=== PATIENT | female | born 1935 | race Caucasian/White ===

== ENCOUNTER → 2018-03-05 | Outpatient (CLI) | payer OTHER ==
[~2018-03-05] MED LIST: ADULT LOW DOSE81 MG PO; ALLOPURINOL 10100 M2 PO; AMITRIPTYLINE H10 M1 PO; AUGMENTIN 875875 MG PO; FLEXERIL PO; FUROSEMIDE 20 M20 M1 PO; GABAPENTIN100 MG PO; LISINOPRIL20 MG PO; LORTAB 5 MG/5001 TA1 PO; OMEPRAZOLE20 MG PO; SYNTHROID
== END ==
LOC: M.MRI 15:44
DX: M47.816 Spondylosis without myelopathy or radiculopathy, lumbar region (principal); G89.29 Other chronic pain; M51.34 Other intervertebral disc degeneration, thoracic region; M48.062 Spinal stenosis, lumbar region with neurogenic claudication; M54.16 Radiculopathy, lumbar region

== ENCOUNTER → 2018-07-02 | Outpatient (CLI) | payer OTHER | LOC: M.RAD 13:50 | DX: J98.11 Atelectasis (principal); R06.02 Shortness of breath ==

== ENCOUNTER → 2018-07-17 | Outpatient (CLI) | payer OTHER | LOC: M.RAD 11:02 | DX: J84.10 Pulmonary fibrosis, unspecified (principal); I34.8 Other nonrheumatic mitral valve disorders; J15.8 Pneumonia due to other specified bacteria; R59.0 Localized enlarged lymph nodes ==

== ENCOUNTER → 2018-09-03 | Outpatient (CLI) | payer OTHER | LOC: M.RAD 13:27 | DX: Z12.31 Encounter for screening mammogram for malignant neoplasm of breast (principal) ==

== ENCOUNTER 2020-03-05 19:29 | Emergency (ER) | payer OTHER ==
[~2020-03-05] VITALS: Ht 154.9 cm; Wt 90.3 kg
[2020-03-05] MEDS ORDERED: CRANBERRY400 MG PO (20:14)
[2020-03-05 21:00] LABS: ABSOLUTE BASOPHILS 0.1 thou/uL (0.0-0.2); ABSOLUTE EOSINOPHILS 0.1 thou/uL (0.0-0.7); ABSOLUTE LYMPHOCYTES 1.2 thou/uL (0.8-5.3); ABSOLUTE MONOCYTES 1.1 thou/uL (0.0-1.2); ABSOLUTE NEUTROPHILS 12.9 thou/uL (1.6-8.1); BASOPHILS 0.4 %; EOSINOPHILS 0.4 %; HEMATOCRIT 47.5 % (37.0-47.0); HEMOGLOBIN 16.1 gm/dL (12.0-15.0); LYMPHOCYTES 7.9 %; MCH 31.6 pg (26.0-34.0); MCHC 33.9 g/dL (28.0-37.0); MCV 93.3 fL (80.0-100.0); MONOCYTES 7.1 %; MPV 8.7 fl. (7.2-11.1); NUCLEATED RBCS 0 /100WBC; PLATELET COUNT* 315 thou/uL (150-400); POLYS 84.2 %; RBC 5.09 mil/uL (4.20-5.00); RDW-CV 13.6 % (10.5-14.5); WBC 15.4 thou/uL (4.0-11.0)
[2020-03-05 21:04] LABS: CALCIUM 9.1 mg/dL (8.5-10.1); CREATININE 1.6 mg/dL (0.6-1.3); POTASSIUM 4.3 mmol/L (3.5-5.1)
[2020-03-05 21:09] LABS: ALBUMIN 3.3 g/dL (3.4-5.0); TOTAL BILIRUBIN 0.3 mg/dL (<0.1-1.0); TOTAL PROTEIN 6.4 g/dL (6.4-8.2)
[2020-03-05] MEDS ORDERED: LORCET 5-325 M1 EACH PO (22:08)
[2020-03-05] MEDS ORDERED: KEFLEX500 M2 PO (22:08)
[2020-03-05 22:27] VITALS: BP 147/78
== END 2020-03-05 22:29 | disposition home or self-care (01) ==
LOC: M.ERS 19:29
PROVIDERS: Emergency Medicine
DX: L03.115 Cellulitis of right lower limb (principal); I10 Essential (primary) hypertension; E03.9 Hypothyroidism, unspecified; Z90.49 Acquired absence of other specified parts of digestive tract; Z96.652 Presence of left artificial knee joint; Z96.641 Presence of right artificial hip joint; Z91.013 Allergy to seafood; Z88.8 Allergy status to other drugs, medicaments and biological substances

== ENCOUNTER 2020-10-09 17:28 | Inpatient (IN) | payer OTHER ==
[~2020-10-09] VITALS: Ht 154.9 cm; Wt 96.1 kg
[~2020-10-09 17:28] MED LIST changes: +CRANBERRY400 MG PO; +KEFLEX500 M2 PO; +LORCET 5-325 M1 EACH PO
[2020-10-09 18:00] VITALS: BP 145/103
[2020-10-09] MEDS ORDERED: LEVO-T25 MCG (18:11)
[2020-10-09] MEDS ORDERED: LISINOPRIL10 MG PO (18:11)
[2020-10-09] MEDS ORDERED: FLEXERIL PO (18:12)
[2020-10-09] MEDS ORDERED: AMITRIPTYLINE H10 M1 PO (18:12)
[2020-10-09 18:23] LABS: HEMATOCRIT 52.1 % (37.0-47.0); HEMOGLOBIN 17.4 gm/dL (12.0-15.0); MCH 31.3 pg (26.0-34.0); MCHC 33.4 g/dL (28.0-37.0); MCV 93.8 fL (80.0-100.0); MPV 10.4 fl. (7.2-11.1); NUCLEATED RBCS 0 /100WBC; PLATELET COUNT* 240 thou/uL (150-400); RBC 5.55 mil/uL (4.20-5.00); RDW-CV 15.3 % (10.5-14.5); WBC 10.5 thou/uL (4.0-11.0)
[2020-10-09 18:36] LABS: APTT 24.6 Seconds (25.0-31.3); PROTIME 10.7 Seconds (9.20-11.50)
[2020-10-09 18:45] LABS: ALBUMIN 4.2 g/dL (3.4-5.0); CALCIUM 10.2 mg/dL (8.5-10.1); CREATININE 1.7 mg/dL (0.6-1.3); POTASSIUM 4.2 mmol/L (3.5-5.1); TOTAL BILIRUBIN 0.9 mg/dL (<0.1-1.0); TOTAL PROTEIN 7.8 g/dL (6.4-8.2)
[2020-10-09 18:58] LABS: ABSOLUTE LYMPHOCYTES 0.8 thou/uL (0.8-5.3); ABSOLUTE MONOCYTES 0.3 thou/uL (0.0-1.2); ABSOLUTE NEUTROPHILS 9.3 thou/uL (1.6-8.1)
[2020-10-09 18:59] LABS: PLATELET ESTIMATE ADEQUATE
[2020-10-09 21:13] VITALS: BP 131/64
[2020-10-09 22:00] VITALS: BP 132/69
--- NOTE | 2020-10-09 22:33 | NUR ---
PT ADMITTTED TO ROOM 202 AT 2130. PT ON CARDIZEM DRIP FOR TREATMENT OF AFIB / RVR. PT ORIENTED TO CALL LIGHT, ROOM AND BED CONTROLS. PT INSTRUCTED TO CALL FOR ASSISTANCE BEFORE GETTING UP. CALL LIGHT IN REACH, PT DEMONSTRATES PROPER USE.
[2020-10-10] VITALS (7 sets, daily range): BP systolic 99–150; BP diastolic 53–75
--- NOTE | 2020-10-10 17:06 | NUR ---
RECEIVED REPORT AROUND 0715. ASSUMED CARE. VS AND ASSESSMENT CHARTED. IV INTACT RIGHT AC. NEW IV INSERTED RIGHT HAND FOR ABX. HEART MONITOR ATTACHED AT AFIB. AMIO DRIP RUNNING. PT HAD EPISODE OF SHORTNESS OF BREATH WHEN GETTING UP TO USE BATHROOM. DR HOWARD ORDERED TO USE PURWICK. PT UP IN CHAIR NOW. HAS HAD PAIN THROUGHOUT SHIFT. PT STARTED ON BREATHING TREATMENTS THIS SHIFT. MORPHINE ORDERED PER DR HOWARD. MEDS GIVEN PER AUG. HOURLY ROUNDING PERFORMED. FAMILY VISTED THIS SHIFT. UPDATED ON PT. CALL LIGHT WITH IN REACH. WILL CONTINUE TO MONITOR.
[2020-10-11 03:39] VITALS: BP 106/63
[2020-10-11 04:18] LABS: CALCIUM 8.5 mg/dL (8.5-10.1); CREATININE 1.8 mg/dL (0.6-1.3); POTASSIUM 3.9 mmol/L (3.5-5.1)
--- NOTE | 2020-10-11 04:21 | NUR ---
ASSUMED CARE OF PT AFTER REPORT AT 1930. PT A&OX4. VSS. PHYSICAL ASSESSMENT COMPLETED AND CHARTED. PT ON O2 AT 6L NC. SOB WITH ACTIVITY NOTED. PT TRACING AFIB ON TELE. PT UPSTANDBY FROM RECLINER TO BED. PT COMPLAINED OF RIGHT SHOULDER PAIN & ANXIOUS-MED GIVEN PER AUG. MAINTAINED ON AMIODARONE DRIP. PT INSTRUCTED ON NPO POST MIDNIGHT FOR STRESS TEST TODAY. COMMUNICATES UNDERSTANDING. PT ABLE TO SLEEP WELL ON BED. FALL PRECAUTIONS IN PLACE. CALL LIGHT WITHIN REACH.
[2020-10-11 08:08] VITALS: BP 128/77
[2020-10-11 11:39] VITALS: BP 101/51
--- NOTE | 2020-10-11 12:25 | 2DMMODE ---
[place] [address] 2 D/M-MODE ECHOCARDIOGRAM Name: BANUELOSRASHI Room: [address] IN .R.#: [id number] Admission: 10/09/20 Attend Phys: Minal Isaac, Discharge: 10/16/20 Date of : 37 Date of Service: 10/11/20 1225 Report #: [id number] THIS REPORT FOR: cc: Jerry Pop MD, Dean L. MD Holkins, John M. MD [facility] ~ APPROVED REPORT Study performed: 10/11/2020 09:47:30 EXAM: Comprehensive 2D, Doppler, and color-flow Echocardiogram BSA: 1.85 HR: 95 bpm BP: 128/77 mmHg Other Information Study Quality: Technically Limited Technically limited study due to inability to position patient and coughing. Indications Atrial Fibrillation Dyspnea 2D Dimensions IVSd: 13.58 (7-11mm) LVOT Diam: 18.40 (18-24mm) LVDd: 46.04 mm PWd: 11.89 (7-11mm) Ascending Ao: 26.30 (22-36mm) LVDs: 32.89 (25-40mm) Aortic Root: 27.64 mm Volumes Left Atrial Volume (Systole) LA ESV Index: 29.80 mL/m2 Aortic Valve AoV Peak Eh.: 1.08 m/s AO Peak Gr.: 4.63 mmHg LVOT Max P.67 mmHg AO Mean Gr.: 2.78 mmHg LVOT Mean P.34 mmHg LVOT Max V: 0.82 m/s AO V2 VTI: 17.23 cm LVOT Mean V: 0.54 m/s ESTELLA (VTI): 2.07 cm2 LVOT V1 VTI: 13.39 [place] [address] 2 D/M-MODE ECHOCARDIOGRAM Name: RASHI BANUELOS Room: [address] IN [facility]#: [id number] Admission: 10/09/20 Attend Phys: Minal Isaac, Discharge: Date of : 37 Date of Service: 10/11/20 1225 Report #: [id number] Mitral Valve MV Mean Gr.: 3.72 mmHg MV Decel. Time: 191.94 ms MV PHT: 55.66 ms MVA (PHT): 3.95 cm2 TDI Medial E' Eh.: 0.04 m/s Lateral E' Eh.: 0.04 m/s Pulmonary Valve PV Peak Eh.: 0.59 m/s PV Peak Gr.: 1.39 mmHg Tricuspid Valve RAP Estimate: 20.00 mmHg TR Peak Gr.: 17.07 mmHg RVSP: 37.07 mmHg PA Pressure: 37.07 mmHg Left Ventricle The left ventricle is normal size. There is normal LV segmental wall motion. There is normal left ventricular wall thickness. Left ventricular systolic function is normal. LVEF is 55%. This study is not technically sufficient to allow evaluation of the LV diastolic function due to atrial fibrillation. Right Ventricle The right ventricle is normal size. The right ventricular systolic function is normal. Atria The left atrium size is normal. The right atrium size is normal. Aortic Valve The aortic valve is normal in structure. No aortic regurgitation is present. There is no aortic valvular stenosis. Mitral Valve There is mitral annular calcification. Trace mitral regurgitation. No significant mitral valve stenosis. Tricuspid Valve The tricuspid valve is normal in structure. Trace tricuspid regurgitation[place] [address] 2 D/M-MODE ECHOCARDIOGRAM Name: RASHI BANUELOS Room: [address]#: [id number] Admission: 10/09/20 Attend Phys: Minal Isaac, Discharge: Date of : 37 Date of Service: 10/11/20 1225 Report #: [id number] The pulmonary valve is normal in structure. There is no pulmonic valvular regurgitation. Great Vessels The aortic root is normal in size. IVC is dilated. Pericardium There is no pericardial effusion. <Conclusion> The left ventricle is normal size. There is normal left ventricular wall thickness. Left ventricular systolic function is normal. LVEF is 55%. This study is not technically sufficient to allow evaluation of the LV diastolic function due to atrial fibrillation. The right ventricle is normal size. The left atrium size is normal. The aortic valve is normal in structure. There is mitral annular calcification. No significant mitral valve stenosis. The tricuspid valve is normal in structure. IVC is dilated. There is no pericardial effusion. There is normal LV segmental wall motion. <ELECTRONICALLY SIGNED> By: Angel Serrato MD, FACC 10/11/20 1225 1225 1225 Angel Serrato MD, FACC /INF
--- NOTE | 2020-10-11 12:54 | NUR ---
Pt is A&O. Resides at home, has someone living in the apartment in her home. Independent. Pt has a rollator, cane and wc at home, primarily uses the RW. No home o2. No hx of HH or SNF. Goal is home at dc, no needs anticipated. Cardiology following, on amio gtt. Currently on 4L of o2, will need an ex ox at dc, if Pt continues to require o2. Following.
--- NOTE | 2020-10-11 15:19 | EKG ---
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 : 1935 Requested By: Aga Garcia Order Number: [id number] MD: Angel Serrato Measurements Intervals [place] Rate: 159 P: NE: QRS: 24 QRSD: 82 T: 203 QT: 253 QTc: 412 Interpretive Statements Atrial fibrillation with rapid V-rate Repolarization abnormality, prob rate related Baseline wander in lead(s) V1 No previous ECG available for comparison Electronically Signed On 10-11-2020 15:19:24 CDT by Angel Serrato [email or web address] <ELECTRONICALLY SIGNED> By: Angel Serrato MD, [facility] 10/11/20 1519 1759 1759 Angel Serrato MD, [facility] /EPI
--- NOTE | 2020-10-11 15:25 | NUR ---
ORDERS RECEIVED AND CHART REVIEWED. PATIENT BECAME NAUSEOUS UPON INITIATION OF THERAPY. UNABLE TO ASSESS FUNCTION AT THIS TIME. PATIENT DESIRES TO HOLD OFF WITH P.T. AT THIS TIME. WILL CONTINUE P.T. ASSESSMENT 10/12/20. CARY CABRERA, MPT
--- NOTE | 2020-10-11 15:29 | EKG ---
[place] [address] ELECTROCARDIOGRAM REPORT Name: RASHI BANUELOS Room: [address] IN M.R.#: [id number] Admission: 10/09/20 Attend Phys: Minal Isaac, Discharge: 10/16/20 Date of : 37 Date of Service: 10/11/20 0841 Report #: [id number] THIS REPORT FOR: //name// [facility] Test Date: 2020-10-11 Test Time: 08:41:11 Pat Name: RASHI BANUELOS Department: Room: [address] Gender: F [place] Attorney: RIKA : 1935 Requested By: Jill Lundberg Order Number: [id number] Pedro MD: Angel Serrato Measurements Intervals [place] Rate: 119 P: CT: QRS: 26 QRSD: 83 T: 205 QT: 307 QTc: 432 Interpretive Statements Atrial fibrillation with a tachycardic ventricular response Nonspecific T abnormalities, lateral leads Compared to ECG 10/09/2020 17:59:30 T-wave abnormality now present Early repolarization no longer present Electronically Signed On 10-11-2020 15:29:44 CDT by Angel Serrato [email or web address] <ELECTRONICALLY SIGNED> By: Angel Serrato MD, [facility] 10/11/20 1529 0 0841 Angel Serrato MD, [facility] /EPI
[2020-10-11 16:09] VITALS: BP 122/77
--- NOTE | 2020-10-11 18:35 | NUR ---
PT IS ALERT AND ORIENTED BUT VERY ANXIOUS WAS ON 6L NC TO 4L NC STILL AFIB ON THE MONITOR TACHY AMIO GTT ASSIST X1 WITH A WALKER C/O PAIN TO RIGHT SHOULDER MORPHINE AND NORCO GIVEN NAUSEATED SO GIVEN ZOFRAN PT EMESIS CLEAR LIQUID WATER IT LOOKS LIKE X3 TODAY SOA NOTED T/O DAY SOME IRRITATION NOTED FAMILY AT BEDSIDE WITH EXTRA NEEDS CALL LIGHT IN REACH
[2020-10-11 20:49] VITALS: BP 108/71
[2020-10-11 23:52] VITALS: BP 114/64
[2020-10-12 04:26] VITALS: BP 96/60
[2020-10-12 05:12] LABS: HEMATOCRIT 46.6 % (37.0-47.0); MCV 96.9 fL (80.0-100.0); MPV 10.7 fl. (7.2-11.1); RBC 4.81 mil/uL (4.20-5.00); RDW-CV 15.6 % (10.5-14.5); WBC 10.9 thou/uL (4.0-11.0)
[2020-10-12 05:19] LABS: CALCIUM 9.4 mg/dL (8.5-10.1); CREATININE 2.6 mg/dL (0.6-1.3); POTASSIUM 4.8 mmol/L (3.5-5.1)
[2020-10-12 06:09] LABS: HEMOGLOBIN 14.9 gm/dL (12.0-15.0)
--- NOTE | 2020-10-12 06:27 | NUR ---
PT IS ABLE TO COMMUNICATE HER NEEDS TO STAFF WITH MINOR DIFFICULTY; SHE CAN HAVE GARBLED SPEECH AT TIMES AND IS FORGETFUL AT TIMES WELL. SHE HAS DENIED THE NEED FOR PAIN MEDICATION UP TO THIS TIME. PT VOMITING FREQUENTLY AT START OF SHIFT; MD PUGHD, ORDERS RECIEVED, IMPLEMENTED, AND TOLERATED WELL BY PT. PT DID NOT HAVE MEASURABLE OUTPUT OVERNIGHT; PAGED, ORDERS RECEIVED AND IN THE PROCESS OF BEING IMPLEMENTED AT THIS TIME.
[2020-10-12 08:30] VITALS: BP 139/85
[2020-10-12 12:01] VITALS: BP 143/106
--- NOTE | 2020-10-12 12:57 | EKG ---
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: : 1935 Requested By: Jill Lundberg Order Number: [id number] Pedro MD: Angel Serrato Measurements Intervals [place] Rate: 96 P: [place]: QRS: 23 QRSD: 88 T: 228 QT: 478 QTc: 605 Interpretive Statements Atrial fibrillation Borderline T abnormalities, diffuse leads Prolonged QT interval Compared to ECG 10/11/2020 08:41:11 Prolonged QT interval now present T-wave abnormality still present Electronically Signed On 10-12-2020 12:57:10 CDT by Angel Serrato [email or web address] <ELECTRONICALLY SIGNED> By: Angel Serrato MD, FACC 10/12/20 1257 1002 1002 Angel Serrato MD, FACC /EPI
--- NOTE | 2020-10-12 13:21 | NUR ---
Pt weak today, therapies to see. Afib, cardiology following. Remains on 4L o2, will need ex ox at dc if continues to require. Anticipate dc in a few days.
[2020-10-12 16:00] VITALS: BP 85/57
[2020-10-12 16:09] LABS: BE -10.5 mmol/L (-2 to +3); PCO2 40.8 mmHg (35.0-45.0); PO2 79.8 mmHg (75.0-100.0)
[2020-10-12 16:14] LABS: pH 7.226 (7.340-7.450)
[2020-10-12 16:41] LABS: CALCIUM 9.3 mg/dL (8.5-10.1); POTASSIUM 4.7 mmol/L (3.5-5.1)
--- NOTE | 2020-10-12 17:31 | NUR ---
PT WITH WORSENING SYMPTOMS T/O DAY PT WAS VERY WEAK AND LETHARGIC THIS AM ON 4L NC LS WITH CONGESTION AT TIMES AND HAS TO COUGH TO MOVE AROUND YESTERDAY NOTICED AUDBILE WHEEZING IN THE EVENING EDEMA CONTINUES TO BLE 2+ VERY COLD TO THE TOUCH ALL OVER BP WAS HIGH THIS AM BUT IS NOW 88/54 SOME CONFUSION AND SLURRED SPEECH AT TIMES MAYBE 25ML OF OUTPUT EVEN WITH IV ABT AND SOME FLUIDS CREAT IS 3.0 NOW DISCUSSED THIS AM THE PATIENT WORSE THAN YESTERDAY WITH PHYSICIAN THEN AGAIN LATER ABOUT PT COLD TO TOUCH AND VERY WEAK PROBABLY NOT ABLE TO GET UP MOVING AROUND LIKE WE WOULD LIKE PT DID SIT IN CHAIR FOR ABOUT AN HOUR OR SO THIS AFTERNOON DENIES PAIN DISCUSSED WITH PHYSICIAN AGAIN
[2020-10-12 19:32] LABS: PHOSPHORUS* 6.3 mg/dL (2.5-4.9)
[2020-10-12 19:38] LABS: MAGNESIUM < 0.1 mg/dL (1.8-2.4)
[2020-10-12 20:09] VITALS: BP 98/56
[2020-10-13] VITALS (8 sets, daily range): BP systolic 84–117; BP diastolic 47–82
--- NOTE | 2020-10-13 05:14 | NUR ---
PT IS ABLE TO COMMUNICATE HER NEEDS TO STAFF WITH MINOR DIFFICULTY; SHE CAN BE FORGETFUL AT TIMES. SHE HAS DENIED THE NEED FOR PAIN MEDICATION UP TO THIS TIME. SERUM MAG CRITICAL LOW EARLY IN SHIFT; PAGED, ORDERS RECEIVED AND CURRENTLY BEING IMPLEMENTED. ENHANCED ISOLATION FOR PENDING COVID-19 TESTING MAINTAINED. SHE HAS BEEN NPO SINCE MIDNIGHT FOR POSSIBLE THORACENTESIS TODAY; ORDERED TO HOLD ALL ANTI-PLT/COAG MEDS THIS MORNING.
[2020-10-13 05:43] LABS: ABSOLUTE EOSINOPHILS 0.1 thou/uL (0.0-0.7); ABSOLUTE LYMPHOCYTES 1.3 thou/uL (0.8-5.3); ABSOLUTE NEUTROPHILS 7.7 thou/uL (1.6-8.1); BASOPHILS 0.3 %; EOSINOPHILS 1.3 %; HEMATOCRIT 44.1 % (37.0-47.0); HEMOGLOBIN 14.5 gm/dL (12.0-15.0); MCH 31.2 pg (26.0-34.0); MCV 94.6 fL (80.0-100.0); MONOCYTES 9.8 %; MPV 10.3 fl. (7.2-11.1); NUCLEATED RBCS 0 /100WBC; PLATELET COUNT* 213 thou/uL (150-400); POLYS 75.6 %; RBC 4.66 mil/uL (4.20-5.00); RDW-CV 14.9 % (10.5-14.5); WBC 10.2 thou/uL (4.0-11.0)
[2020-10-13 05:51] LABS: ALBUMIN 2.9 g/dL (3.4-5.0); APTT 31.4 Seconds (25.0-31.3); CALCIUM 9.1 mg/dL (8.5-10.1); CREATININE 2.7 mg/dL (0.6-1.3); INR 1.2; MAGNESIUM 3.3 mg/dL (1.8-2.4); POTASSIUM 4.7 mmol/L (3.5-5.1); PROTIME 12.3 Seconds (9.20-11.50); TOTAL BILIRUBIN 0.4 mg/dL (<0.1-1.0); TOTAL PROTEIN 6.2 g/dL (6.4-8.2)
--- NOTE | 2020-10-13 12:30 | NUR ---
PUI. Remains on 4L o2. Cards following for afib. Peggy dc for today. PT eval yesterday, recommending outpt therapy. CM following.
--- NOTE | 2020-10-13 19:52 | NUR ---
I ASSUMED CARE OF THE PATIENT AT 0700. SHE IS ALERT AND ORIENTED X4, BUT A LITTLE FORGETFUL. BED IS IN THE LOW LOCKED POSITION AND CALL LIGHT IS IN REACH. HOURLY ROUNDING IS COMPLETED AND PATIENT NEEDS ARE MET. PAIN IS DENIED. THORACENTESIS WILL BE TOMORROW, SO NPO AT MIDNIGHT. SHE FAILED A BEDSIDE SWALLOW TODAY, BUT PASSED THE VIDEO SWALLOW. ISOLATION IS MAINTAINED UNTIL COVID PCR COMES BACK FROM THE LAB. OXYGEN IS TITRATED TO 3 LITERS. DIET IS RESUMED. SHE IS UP WITH ASSIST OF 2, GAIT BELT AND WALKER. WILL CONTINUE TO MONITOR. NO BLOOD THINNERS UTIL AFTER THORACENTESIS.
[2020-10-14 04:00] VITALS: BP 120/63
--- NOTE | 2020-10-14 04:36 | NUR ---
PT SLEPT ON AND OFF THIS SHIFT. ASSESSMENT DOCUMENTED. MEDS GIVEN PER E-AUG. IV PATENT. PT REMOVED IV THIS SHIFT, NEW IV STARTED. PT DOWN TO 2L NC THIS SHIFT. COVID PCR CAME BACK NEGATIVE, NOTIFIED, ORDERS TO D/C ISOLATION. FALL PRECAUTIONS IN PLACE. PT NPO SINCE 0000. WILL CONTINUE WITH PLAN OF CARE.
[2020-10-14 04:56] LABS: ABSOLUTE EOSINOPHILS 0.3 thou/uL (0.0-0.7); ABSOLUTE LYMPHOCYTES 1.2 thou/uL (0.8-5.3); ABSOLUTE MONOCYTES 0.8 thou/uL (0.0-1.2); ABSOLUTE NEUTROPHILS 5.7 thou/uL (1.6-8.1); BASOPHILS 0.2 %; EOSINOPHILS 3.5 %; HEMATOCRIT 39.9 % (37.0-47.0); HEMOGLOBIN 13.2 gm/dL (12.0-15.0); LYMPHOCYTES 15.6 %; MCH 30.9 pg (26.0-34.0); MCHC 32.9 g/dL (28.0-37.0); MCV 93.8 fL (80.0-100.0); MPV 10.6 fl. (7.2-11.1); NUCLEATED RBCS 0 /100WBC; PLATELET COUNT* 207 thou/uL (150-400); POLYS 70.7 %; RBC 4.26 mil/uL (4.20-5.00); RDW-CV 15.1 % (10.5-14.5)
[2020-10-14 05:11] LABS: ALBUMIN 2.8 g/dL (3.4-5.0); CALCIUM 8.8 mg/dL (8.5-10.1); CREATININE 2.7 mg/dL (0.6-1.3); POTASSIUM 4.2 mmol/L (3.5-5.1); TOTAL BILIRUBIN 0.3 mg/dL (<0.1-1.0); TOTAL PROTEIN 6.4 g/dL (6.4-8.2)
[2020-10-14 07:49] LABS: PCO2 42.5 mmHg (35.0-45.0); PO2 82.6 mmHg (75.0-100.0)
[2020-10-14 07:58] LABS: pH 7.262 (7.340-7.450)
[2020-10-14 08:00] VITALS: BP 112/48
--- NOTE | 2020-10-14 12:08 | NUR ---
Covid negative. 2L. Thora today. Cards following.
[2020-10-14 12:36] VITALS: BP 108/68
[2020-10-14 12:44] LABS: BF RBC <1000 /mm3; TOTAL CELL COUNT 483 /mm3
[2020-10-14 12:46] LABS: CLARITY HAZY; TOTAL VOLUME 660 ml
[2020-10-14 12:52] LABS: SOURCE PLEURAL FLUID
[2020-10-14 13:20] LABS: BF LYMPHOCYTES 87 %; BF MONOCYTES 6 %; BF POLYS 7 %; BF TISSUE 53 /100 WBC
[2020-10-14 15:49] VITALS: BP 108/64
[2020-10-14 20:00] VITALS: BP 117/57
--- NOTE | 2020-10-14 22:17 | NUR ---
PT DOWN FOR THORACENTIOSI REMOVED 660 FROM LEFT LUNG. PT TOLERATED PROCEEDURE WELL. PT UP AMBULATING IN ROOM WITH STEADY GAIT USING WALKER AND GAIT BELT. VSS AFEBRILE. PT IS ON ROOM AIR AND SATING IN THE UPPER 98%. WILL CONTINUE TO MONITOR PLAN OF CARE. PT TAKEN DOWN PER WHEEL CHAIR FOR CAT SCAN OF THE CHEST.
[2020-10-15] VITALS: BP 119/68
[2020-10-15 04:00] VITALS: BP 88/50
--- NOTE | 2020-10-15 07:41 | NUR ---
ASSUMED PT CARE AT APPROX 1930. PT IS AWAKE AND ORIENTED X4, FORGETFUL AT TIMES. PT IS NOT IN DISTRESS, NO DESATURATIONS NOTED ON ROOM AIR. PT DENIES PAIN/DISCOMFORT. THORACENETESIS SITE IS DRY. NO ACUTE CHANGES THIS SHIFT. CALL LIGHT WITHIN REACH. HOURLY ROUNDING DONE FOR PT SAFETY. HIGH FALL PRECAUTIONS IN PLACE.
[2020-10-15 08:00] VITALS: BP 128/54
[2020-10-15 12:00] VITALS: BP 138/68
--- NOTE | 2020-10-15 13:04 | NUR ---
Therapies to seeJeremy Woods yesterday. Off o2. Remains on ivabx. Anticipate dc in a few days to home with HH. CM to have [facility] from [facility] to assess Pt for HH.
[2020-10-15 15:08] LABS: BODY FLUID PROTEIN 1.7 g/dL (())
[2020-10-15 16:00] VITALS: BP 118/77
--- NOTE | 2020-10-15 16:49 | EKG ---
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1935 Requested By: Jill Lundberg Order Number: [id number] Reading MD: Angel Serrato Measurements Intervals [place] Rate: 104 P: [place]: QRS: 18 QRSD: 92 T: 49 QT: 367 QTc: 483 Interpretive Statements Atrial fibrillation Borderline repolarization abnormality Compared to ECG 10/12/2020 10:02:17 T-wave abnormality no longer present Prolonged QT interval no longer present Electronically Signed On 10-15-2020 16:49:52 CDT by Angel Serrato [email or web address] <ELECTRONICALLY SIGNED> By: Angel Serrato MD, [facility] 10/15/20 1649 0837 0837 Angel Serrato MD, [facility] /EPI
--- NOTE | 2020-10-15 16:54 | NUR ---
[facility] NTN Bedside Note: Met with patient and son in law was also in the room. Cj does want our HH. Appt set with Dr. Pop for October 20 at 1:30. Told YADIRA Frank and YADIRA Shaw. [facility]
[2020-10-15 19:45] VITALS: BP 128/65
[2020-10-16] VITALS: BP 144/85
--- NOTE | 2020-10-16 03:56 | NUR ---
PT A&O, VSS ON ROOM AIR, IV SALINE LOCKED, PT UP WITH ASSIST TO GUY. AFIB ON TELE MONITOR. NO CO PAIN THIS SHIFT. PT SLEEPING IN CHAIR MAJORITY OF NIGHT. ASSESSMENTS AND HOURLY ROUNDINGS COMPLETE, WILL CONTINUE TO MONITOR.
[2020-10-16 04:00] VITALS: BP 127/69
[2020-10-16 04:29] LABS: ABSOLUTE EOSINOPHILS 0.2 thou/uL (0.0-0.7); ABSOLUTE LYMPHOCYTES 1.3 thou/uL (0.8-5.3); ABSOLUTE MONOCYTES 0.8 thou/uL (0.0-1.2); ABSOLUTE NEUTROPHILS 4.9 thou/uL (1.6-8.1); BASOPHILS 0.5 %; EOSINOPHILS 2.9 %; HEMATOCRIT 43.4 % (37.0-47.0); HEMOGLOBIN 14.4 gm/dL (12.0-15.0); LYMPHOCYTES 18.2 %; MCH 31.1 pg (26.0-34.0); MCHC 33.2 g/dL (28.0-37.0); MCV 93.7 fL (80.0-100.0); MONOCYTES 11.2 %; MPV 9.7 fl. (7.2-11.1); NUCLEATED RBCS 0 /100WBC; PLATELET COUNT* 278 thou/uL (150-400); POLYS 67.2 %; RBC 4.63 mil/uL (4.20-5.00); RDW-CV 14.8 % (10.5-14.5); WBC 7.3 thou/uL (4.0-11.0)
[2020-10-16 04:43] LABS: ALBUMIN 3.1 g/dL (3.4-5.0); CALCIUM 9.5 mg/dL (8.5-10.1); MAGNESIUM 2.6 mg/dL (1.8-2.4); POTASSIUM 4.1 mmol/L (3.5-5.1); TOTAL BILIRUBIN 0.6 mg/dL (<0.1-1.0); TOTAL PROTEIN 6.3 g/dL (6.4-8.2)
[2020-10-16 05:50] LABS: CREATININE 1.7 mg/dL (0.6-1.3)
[2020-10-16 08:10] VITALS: BP 143/86
[2020-10-16 12:00] VITALS: BP 165/83
--- NOTE | 2020-10-16 14:13 | NUR ---
ASSUMED CARE OF PT AT 0730. PT SITTING UP IN THE RECLINER WAITING FOR BREAKFAST. A&0x4, DENIES ANY PAIN OR SHORTNESS OF BREATH AT THIS TIME. 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 RATE IN THE 110'S-120'S AT TIMES. ON RA SAT UPPER 90'S. PT UP WITH 1 ASSIST TO BATHROOM. CARDIOLOGY HERE THIS AFTERNOON AND MEDICATION ADJUSTMENTS MADE. REFER TO EMAR. AM ASSESSMENT CHARTED. MEDICATIONS PER MAR. PT REPOSITIONS SELF WITH REMINDERS. HOURLY ROUNDING OBSERVED. BED IN LOW POSITION. CHAIR ALARM IN PLACE. FALL PRECAUTIONS IN PLACE. CALL LIGHT WITHIN REACH. WILL CONTINUE PLAN OF CARE.
[2020-10-16] MEDS ORDERED: ELIQUIS5 MG PO (15:34)
[2020-10-16] MEDS ORDERED: PACERONE 200 M200 M1 PO (15:35)
[2020-10-16] MEDS ORDERED: METOPROLOL SUCC25 M1 PO (15:36)
[2020-10-16 15:46] VITALS: BP 165/83
--- NOTE | 2020-10-16 16:39 | NUR ---
OK FOR DISCHARGE PER CARDIO, RENAL AND PULM. DISCHARGE ORDERS RECEIVED. DISCHARGE INSTRUCTIONS, CARE NOTES, SCRIPTS AND FOLLOW UP APPTS GIVEN TO PT. PT COMMUNICATES UNDERSTANDING OF DISCHARGE TEACHING. IV AND COST COORDINATOR REMOVED. PT DISCHARGED WITH ALL BELONGINGS AND PAPERWORK VIA WHEELCHAIR WITH NURSING STAFF TO FAMILY OWN PERSONAL VEHICLE.
--- NOTE | 2020-10-18 15:08 | CON ---
[address] [address] CONSULTATION Name: KIKI BANUELOSMARISSA PATEL Room: [address] IN M.R.#: [id number] Admission: 10/09/20 Attend Phys: Minal Isaac MD Discharge: 10/16/20 Date of : 37 Report #: [id number] THIS REPORT FOR: cc: Jerry Pop MD, Dean L. MD Pervez, Adeel MD ~ DOC #: [id number] Domenic Lopez MD DATE OF CONSULTATION: 10/13/2020 Consult has been requested by Dr. Joya. INDICATION FOR CONSULTATION: Pneumonia. HISTORY OF PRESENT ILLNESS: An 85-year-old female with past medical history is as mentioned below. This does not include a history of smoking. The patient likely has previously undiagnosed obstructive sleep apnea. Her body mass index is 40. She does have kidney disease. I do not have her baseline creatinine available. The patient now presented initially to the emergency room on 10/09. Presentation was with shortness of breath. The patient was noted to be in atrial fibrillation on admission. It is not known to me as to whether this atrial fibrillation is new or old. The patient had already been treated with prednisone as well as erythromycin by her primary care physician as an outpatient. The patient was short of breath on admission as above. She also was coughing. There is not much sputum reported. She was requiring around 2 liters of oxygen initially to maintain O2 saturation in the low 90s. She is reported also to be fluid overloaded and her creatinine initially was elevated to 1.7. The patient was treated with Zithromax as well as ceftriaxone. She also was diuresed with Lasix. There was subsequently an increase in her oxygen needs up to 6 liters. The patient also did have increasing shortness of breath. Subsequent to this, there was an increase in her creatinine reaching 3.0 yesterday. There was a CT done yesterday, which shows fluid overload; however, the patient by now is more stable respiratory eaton, so she was given fluid bolus. Creatinine did improve to 2.7. I added magnesium and phosphorus to the labs last evening. Magnesium was critical low, this was replaced, repeat came back at 3.3. Phosphorus was elevated and I did order a phosphorus binder as well. This morning, the patient is comfortable and sitting comfortably in a chair and has no additional complaints. She at this time did not have upper respiratory complaints and was not febrile. She has some sleep complaints, which are at baseline. REVIEW OF SYSTEMS: The patient's review of systems for 12 points is negative [place] [address] CONSULTATION Name: RASHI BANUELOS Room: [address] IN M.R.#: [id number] Admission: 10/09/20 Attend Phys: Minal Isaac MD Discharge: 10/16/20 Date of : 37 Report #: [id number] PAST MEDICAL HISTORY: Kidney disease, I do not have a baseline creatinine, it was 1.7 on admission. Hypertension, gout, hyperlipidemia, hypothyroidism, atrial fibrillation, not known to me as to whether new or old. The recent echo shows a left ventricular ejection fraction of 55% with only mild elevation in right heart pressures to 37. Morbid obesity, body mass index 40. SOCIAL HISTORY: There is no known history of smoking, ethanol abuse or drug abuse. CURRENT MEDICATIONS: List in [facility] reviewed. HOME MEDICATIONS: List in [facility] reviewed. FAMILY HISTORY: There is no pertinent family history. PHYSICAL EXAMINATION: GENERAL: She is alert, awake and oriented, however, provides a limited history. VITAL SIGNS: Her pulse is 54, blood pressure 84/50, however, she appears to be well perfused and sitting comfortably in a chair. She is saturating 98% on 3 liters nasal cannula. She is afebrile with a temperature of 36.0. HEENT: Head is normocephalic and atraumatic. Has a narrow airway. NECK: Does not show raised JVP, asymmetry, mass or lymph nodes. CHEST: Symmetrical expansion on inspection and palpation. On auscultation, breath sounds are decreased at bilateral lung bases. HEART: Irregular. There is no murmur. ABDOMEN: Soft and nontender. EXTREMITIES: Lower extremities do show 1+ edema, no calf tenderness. SKIN: Dry and intact. NEUROLOGIC: Moves all extremities bilaterally equally and spontaneously with no focal deficit identified. LABORATORY DATA: The patient's CT chest films as well as report are reviewed. This is discussed below with assessment and plan. The patient's lab work in [facility] reviewed. Arterial blood gases do show metabolic acidosis in [facility] reviewed. ASSESSMENT AND PLAN: 1. Acute hypoxemic respiratory failure. This is secondary to fluid overload, which primarily appears to be related to her renal failure in addition to pulmonary infiltrates. Atrial fibrillation with rapid ventricular response initially may also have played a role. 2. Pulmonary infiltrates. She has been sufficiently treated with azithromycin. I would discontinue at this time, received 5 doses, also received azithromycin [address] [address] CONSULTATION Name: RASHI BANUELOS Room: [address] IN [facility]#: [id number] Admission: 10/09/20 Attend Phys: Minal Isaac MD Discharge: 10/16/20 Date of : 37 Report #: [id number] as an outpatient. Also, she is on amiodarone. For now, I have broadened her ceftriaxone to cefepime. My suspicion of MRSA is low, however, I feel it is reasonable to reevaluate further to continue with linezolid. We will see if we are able to get a sputum culture. We will also obtain a nasal swab for MRSA. If she improves, then in the next couple of days, I will be inclined to discontinue current antibiotics and switch her over to oral cefdinir. We will follow. 3. Fluid overload/pleural effusions. This is primarily due to fluid overload; however, I doubt that we will be able to treat this adequately with diuresis considering acute on chronic renal failure. I therefore recommend proceeding to a right-sided thoracentesis. The patient may need a thoracentesis on the left side as well. As the patient is clinically stable at this time and received Xarelto yesterday, we would do the right-sided thoracentesis tomorrow rather than today. Analysis on the fluid is ordered. 4. Acute on chronic renal failure. Considering elevation in creatinine, I would not administer more Lasix at this time. We will reassess with creatinine tomorrow after she has had a thoracentesis. If creatinine is not improving, then may need more IV fluids. At this time, I am only encouraging oral intake. 5. Metabolic acidosis, this is likely due to renal failure. Repeat arterial blood gases ordered for tomorrow. 6. Atrial fibrillation with rapid ventricular response, rate under control now. Cardiology service on the case. 7. Obstructive sleep apnea. The patient appears to have previously undiagnosed obstructive sleep apnea. She is being ruled out for COVID at this time. Subsequent to this, I will consider discussing with her regarding using BiPAP while asleep. 8. Rule out COVID-19. I did recommend that we should do a PCR and rule out COVID-19, however, my suspicion is low. 9. Hypomagnesemia, replaced with 4 grams yesterday. There is a rise from less than 0.1 to 3.3. This may be due to the fact that the level was drawn too soon after administering IV, but I will add a magnesium to labs from yesterday morning and verify that we had an initial correct value for magnesium. 10. Hyperphosphatemia. Phosphate binder is ordered. Thanks for this consultation. Domenic Lopez MD AP/NIS/[place] [address] CONSULTATION Name: BANUELOSRASHI Room: [address] IN M.R.#: [id number] Admission: 10/09/20 Attend Phys: iMnal Isaac MD Discharge: 10/16/20 Date of : 37 Report #: [id number] <ELECTRONICALLY SIGNED> By: Domenic Lopez MD 10/18/20 [id number] Lopez MD /nt
== END 2020-10-16 16:45 | disposition home health service (06) | DRG 177 ==
LOC: M.ERS 17:28 → M.2W 19:51 → M.TBA-ER 19:51 → M.2W 22:00
PROVIDERS: Family Medicine; Internal Medicine; Internal Medicine Cardiovascular Disease; Internal Medicine Critical Care Medicine; Nurse Practitioner Family; Registered Nurse; ADMIT Internal Medicine; ATTEND Internal Medicine
PROC: 0W993ZZ Drainage of Right Pleural Cavity, Percutaneous Approach (ICD-10-PCS; principal; 2020-10-14)
DX: J69.0 Pneumonitis due to inhalation of food and vomit (principal); I50.33 Acute on chronic diastolic (congestive) heart failure; J96.01 Acute respiratory failure with hypoxia; I48.20 Chronic atrial fibrillation, unspecified; N18.4 Chronic kidney disease, stage 4 (severe); I13.0 Hypertensive heart and chronic kidney disease with heart failure and stage 1 through stage 4 chronic kidney disease, or unspecified chronic kidney disease; I24.9 Acute ischemic heart disease, unspecified; N17.9 Acute kidney failure, unspecified; E87.2 Acidosis; J91.8 Pleural effusion in other conditions classified elsewhere; D68.69 Other thrombophilia; Z68.41 Body mass index [BMI] 40.0-44.9, adult; M10.9 Gout, unspecified; E78.5 Hyperlipidemia, unspecified; E03.9 Hypothyroidism, unspecified; G47.33 Obstructive sleep apnea (adult) (pediatric); E83.42 Hypomagnesemia; E83.39 Other disorders of phosphorus metabolism; Z66 Do not resuscitate; E66.9 Obesity, unspecified; Z20.822 Contact with and (suspected) exposure to COVID-19; Z79.899 Other long term (current) drug therapy; Z88.8 Allergy status to other drugs, medicaments and biological substances; Z91.013 Allergy to seafood